=== PATIENT | male | born 1985 | race Caucasian/White ===

== ENCOUNTER 2016-09-22 22:10 | Emergency (ER) | payer OTHER ==
--- NOTE | 2016-09-23 01:27 | ED NURSING NOTES ---
Clinical Report - Nurses [facility] [address] [place] [address] 09/22/2016 22:11 Patient: GLYNN PAGAN TRIAGE Triage time 22:30 Sep 22 2016. Acuity: LEVEL 3. Chief Complaint: (Pain in right flank radiates to abd, when breathes hurts to head). 22:35 09/22/16. SEPSIS SCREEN: Sepsis Screen. Negative (no infection suspected/documented). VALENTÍN COMA SCORE: Valentín Coma Scale: 15- eyes open spontaneously (4); best verbal response- oriented x 4 (5); best motor response- obeys commands (6). --22:35 Tomasa Mondragon R.N. 22:30 09/22/16. BP: 125/71 (regular adult cuff) taken on the left arm, while sitting. HR: 113. RR: 18. O2 saturation: 97% on room air. Temp: 99.1 F (oral). Pain level now: 7/10. --22:35 Tomasa Mondragon R.N. Weight: 83.9 kg stated. Height/Length: 70 inches Per Patient. BMI: 26.5. --22:35 Tomasa Mondragon R.N. Medications None. --22:31 Tomasa Mondragon R.N. Allergies Penicillin. --22:31 Tomasa Mondragon R.N. History Arrived by private vehicle. Historian: patient. Onset. (2 days ago). ( Patient has cough, productive green phlegm, started two days ago). Treatment PERCHER: (Aleve over 12 hours ago). SOCIAL HX: Current every day heavy tobacco smoker- 1 pack per day. History of heavy drug use: heroin, methamphetamines. Recently used drugs just prior to arrival. No alcohol use. ABUSE ASSESSMENT: No report of abuse. --22:35 Tomasa Mondragon R.N. PROBLEMS: no known problems. ADDITIONAL SURGERIES: no known surgeries. Interventions ID band on patient. To treatment room. --22:35 Tomasa Mondragon R.N. PHYSICAL ASSESSMENT Ambulatory to room. GENERAL / NEURO / PSYCH: Alert. Oriented X 4. Appears in no acute distress. HEENT: Mucous membranes are pink. RESPIRATORY: Respirations not labored. Breath sounds within normal limits. CVS: Normal heart rate and rhythm. Capillary refill less than 2 seconds. GI / : Abdomen soft and nontender. Bowel sounds within normal limits. Normal genitalia. No genital lesions noted. SKIN: Skin is warm. --22:35 Tomasa Mondragon R.N. NURSING PROGRESS NOTES 22:35 09/22/16. The plan of care for this patient has been created. Monitoring of patient in place. Head of bed elevated. Reassurance given. Two patient identifiers checked. Call light placed in reach. Side rails up x 1. Bed placed in lowest position. Brakes of bed on. Patient ready for evaluation- chart flagged and ED physician notified. --22:35 Tomasa Mondragon R.N. ( warm blanket given). --22:36 Tomasa Mondragon R.N. ( Warm blanket placed on right flank for comfort and pain relief). --22:39 Tomasa Mondragon R.N. 22:49 09/22/16. ( Patient given water at request of Dr José for UA). --22:49 Tomasa Mondragon R.N. 23:59 09/22/16. ( Rounded on patient, he is doing fine, resting quietly.). --23:59 Tomasa Mondragon R.N. 01:00 09/23/16. BP: 110/57 (regular adult cuff) taken on the left arm. HR: 103. RR: 16. O2 saturation: 95% on room air. Pain level now: 0/10. --01:01 Tomasa Mondragon R.N. ( Patient resting quietly, easily aroused, requested water, this was given, vitals WNL). --01:01 Tomasa Mondragon R.N. 01:18 09/23/2016 Azithromycin PO Tablets 500 mg given. Allergies verified and confirmed 5 rights. --01:18 Tomasa Mondragon R.N. DISPOSITION / DISCHARGE 01:39 09/23/16. Departure time: 01:35 Sep 23 2016. Condition at departure: unchanged. No learning barriers present. Discharge instructions provided and reviewed with the patient. Reviewed medication(s) side effects, precautions, dosing and course information. Prescription(s) given to the patient. Patient verbalized understanding. Written instructions provided in Greenlandic. The patient was discharged by the physician. He was discharged home. He left the Emergency Department ambulatory and via private vehicle. Patient driving. --01:40 Tomasa Mondragon R.N. 01:38 09/23/16. BP: 112/60 (regular adult cuff) taken on the left arm, while sitting. HR: 92. RR: 16 (regular). O2 saturation: 100% on room air. Temp: 98.8 F (oral). Pain level now: 11/30. --01:40 Tomasa Mondragon R.N. Locked/Released at 09/23/2016 1:40 by Tomasa Mondragon R.N.
--- NOTE | 2016-09-23 01:27 | ED ORDER SUMMARY ---
..... Patient: GLYNN PAGAN OrderSheet [facility] VisitID: [id number] [place] [address] 31y, M Registration Date/Time: 09/22/2016 ORDER SHEET Weight: 83.9 kg (stated) Allergies: Penicillin GENERAL ORDERS: UA-Culture if indicated Urgent (22:46 09/22/2016 Regino Valerio) (Ack 22:52 JSanders R.N.) (23:20 JSanders R.N.) Chest 1V Urgent (23:36 09/22/2016 Regino Valerio) (Ack 23:38 AMcQuoid ER Tech1) (23:54 Brea) MEDICATION ORDERS: Azithromycin PO 500 mg (NOW) (01:15 09/23/2016 Regino Valerio) (Ack 1:16 JSanders R.N.) (1:18 JSanders R.N.) IV FLUIDS: ORDER SHEET NOTES: [Electronically signed by Tomasa Mondragon R.N. (01:40 09/23/2016)] [Electronically signed by Alphonso José Dr. (20:55 09/23/2016)] [Electronically locked/signed by Tomasa Mondragon R.N. (:40 09/23/2016)]
--- NOTE | 2016-09-23 01:27 | ED CLINICAL REPORT ---
Clinical Report - Physicians/Mid Levels [facility] [address] [place] [address] 09/22/2016 22:11 Patient: GLYNN PAGAN Time Seen: 22:46; initial patient contact. Arrived- By private vehicle. Historian- patient. HISTORY OF PRESENT ILLNESS Chief Complaint: ABDOMINAL PAIN. It is described as sharp. No radiation. It is described as located in the right flank, the right chest, the right abdomen and the left chest. At its maximum, severity described as moderate. When seen in the E.D., severity described as moderate. Modifying factors- worsened by cough. Not relieved by anything. This started today. No nausea, loss of appetite, vomiting or diarrhea. Similar symptoms previously: None. Recent medical care: Not recently seen/assessed. REVIEW OF SYSTEMS No constipation, difficulty with urination, pain with urination, fever or difficulty breathing. No chills. He has had chest pain and a cough. All systems otherwise negative, except as recorded above. PAST HISTORY Substance abuse. Problems: no known problems. Surgeries: No history of previous surgery. Additional Surgeries: no known surgeries. Medications: None. Allergies: Penicillin. SOCIAL HISTORY Current every day smoker. History of drug use: heroin, methamphetamines. Recently used drugs just prior to arrival. Under influence in ED. ADDITIONAL NOTES The nursing notes have been reviewed. PHYSICAL EXAM Vital Signs: 09/22/2016 22:30 BP: 125/71. HR: 113. RR: 18. O2 saturation: 97%. Temp: 99.1 F. Pain level now: 7/10. Have been reviewed. Blood pressure normal. Tachycardic. Respiratory rate normal. Temperature normal. Oxygen saturation normal. Appearance: Alert. Oriented X3. No acute distress. Eyes: Eyes normal inspection. ENT: Dry mucous membranes present. CVS: Tachycardia. Heart sounds normal. Rhythm normal. Respiratory: No respiratory distress. Breath sounds normal. Abdomen: Soft. Mild tenderness diffusely. No guarding, rebound tenderness or Wilder's sign present. Bowel sounds normal. Back: Normal inspection. No CVA tenderness. Skin: Skin warm and dry. Normal skin color. No rash. Extremities: No lower extremity edema. Neuro: Oriented X 3. LABS, X-RAYS, AND EKG Chest X-ray: No infiltrate. (Peribronchial cuffing). Views: AP. Technique: good. The X-rays were independently viewed by me and interpreted contemporaneously by me. Prior films were not available for comparison. Laboratory Tests: UA-Culture if indicated: (ELEUTERIO: 09/22/2016 23:10) ( MsgRcvd 09/22/2016 23:35) Final results Test Result Flag Units (Reference) URINE COLOR YELLOW URINE APPEARANCE SL CLOUDY URINE GLUCOSE NEGATIVE (NEGATIVE) URINE BILIRUBIN NEGATIVE (NEGATIVE) URINE KETONE NEGATIVE (NEGATIVE) URINE SPECIFIC GRAVITY 1.020 (1.010-1.030) URINE PH 8.5 H (5.0-8.0) URINE PROTEIN NEGATIVE (NEGATIVE) URINE UROBILINOGEN 0.2 EU/dL (0.2-1.0) URINE NITRITE NEGATIVE (NEGATIVE) URINE BLOOD NEGATIVE (NEGATIVE) URINE LEUK ESTERASE NEGATIVE (NEGATIVE) URINE RBC RARE rbc/hpf (0-1) URINE WBC NONE SEEN wbc/hpf (0-1) URINE EPITHELIAL CELLS NONE SEEN EPI/hpf (0-5) URINE BACTERIA NONE SEEN (NONE SEEN) URINE COMMENT CULT NOT INDICATED 1+ AMORPHOUS PHOSURINE CULTURES ARE SET-UP BASED ON THE FOLLOWING CRITERIA:POSITIVE NITRITEPOSITIVE LEUKOCYTE ESTERASEGREATER THAN 10 WHITE BLOOD CELLSMODERATE (2+) OR GREATER BACTERIA . PROGRESS AND PROCEDURES Disposition: Discharged home in good and improved condition. Condition: good. CLINICAL IMPRESSION Acute bacterial bronchitis. INSTRUCTIONS Do not smoke. Seek medical help to quit smoking. Your Current Medications: CONTINUE TAKING THE FOLLOWING MEDICATIONS: None*. Prescription Medications: Zithromax 250 mg tablets: take 1 orally every day for 4 days. Total course 4 days. No refills. Substitution is permissible. (Loading dose given in the ED) Follow-up: Follow up with your doctor in about three days. Call for an appointment. Screening today revealed the patient's blood pressure to be in the normal range. (Electronically signed by Alphonso José Dr. 09/23/2016 20:55)
--- NOTE | 2016-09-23 01:27 | ED NURSING NOTES ---
Clinical Report - Nurses [facility] [address] [place] [address] 09/22/2016 22:11 Patient: GLYNN PAGAN TRIAGE Triage time 22:30 Sep 22 2016. Acuity: LEVEL 3. Chief Complaint: (Pain in right flank radiates to abd, when breathes hurts to head). 22:35 09/22/16. SEPSIS SCREEN: Sepsis Screen. Negative (no infection suspected/documented). VALENTÍN COMA SCORE: Valentín Coma Scale: 15- eyes open spontaneously (4); best verbal response- oriented x 4 (5); best motor response- obeys commands (6). --22:35 Tomasa Mondragon R.N. 22:30 09/22/16. BP: 125/71 (regular adult cuff) taken on the left arm, while sitting. HR: 113. RR: 18. O2 saturation: 97% on room air. Temp: 99.1 F (oral). Pain level now: 7/10. --22:35 Tomasa Mondragon R.N. Weight: 83.9 kg stated. Height/Length: 70 inches Per Patient. BMI: 26.5. --22:35 Tomasa Mondragon R.N. Medications None. --22:31 Tomasa Mondragon R.N. Allergies Penicillin. --22:31 Tomasa Mondragon R.N. History Arrived by private vehicle. Historian: patient. Onset. (2 days ago). ( Patient has cough, productive green phlegm, started two days ago). Treatment DIRECTOR OF RECRUITING: (Aleve over 12 hours ago). SOCIAL HX: Current every day heavy tobacco smoker- 1 pack per day. History of heavy drug use: heroin, methamphetamines. Recently used drugs just prior to arrival. No alcohol use. ABUSE ASSESSMENT: No report of abuse. --22:35 Tomasa Mondragon R.N. PROBLEMS: no known problems. ADDITIONAL SURGERIES: no known surgeries. Interventions ID band on patient. To treatment room. --22:35 Tomasa Mondragon R.N. PHYSICAL ASSESSMENT Ambulatory to room. GENERAL / NEURO / PSYCH: Alert. Oriented X 4. Appears in no acute distress. HEENT: Mucous membranes are pink. RESPIRATORY: Respirations not labored. Breath sounds within normal limits. CVS: Normal heart rate and rhythm. Capillary refill less than 2 seconds. GI / : Abdomen soft and nontender. Bowel sounds within normal limits. Normal genitalia. No genital lesions noted. SKIN: Skin is warm. --22:35 Tomasa Mondragon R.N. NURSING PROGRESS NOTES 22:35 09/22/16. The plan of care for this patient has been created. Monitoring of patient in place. Head of bed elevated. Reassurance given. Two patient identifiers checked. Call light placed in reach. Side rails up x 1. Bed placed in lowest position. Brakes of bed on. Patient ready for evaluation- chart flagged and ED physician notified. --22:35 Tomasa Mondragon R.N. ( warm blanket given). --22:36 Tomasa Mondragon R.N. ( Warm blanket placed on right flank for comfort and pain relief). --22:39 Tomasa Mondragon R.N. 22:49 09/22/16. ( Patient given water at request of Dr José for UA). --22:49 Tomasa Mondragon R.N. 23:59 09/22/16. ( Rounded on patient, he is doing fine, resting quietly.). --23:59 Tomasa Mondragon R.N. 01:00 09/23/16. BP: 110/57 (regular adult cuff) taken on the left arm. HR: 103. RR: 16. O2 saturation: 95% on room air. Pain level now: 0/10. --01:01 Tomasa Mondragon R.N. ( Patient resting quietly, easily aroused, requested water, this was given, vitals WNL). --01:01 Tomasa Mondragon R.N. 01:18 09/23/2016 Azithromycin PO Tablets 500 mg given. Allergies verified and confirmed 5 rights. --01:18 Tomasa Mondragon R.N. DISPOSITION / DISCHARGE 01:39 09/23/16. Departure time: 01:35 Sep 23 2016. Condition at departure: unchanged. No learning barriers present. Discharge instructions provided and reviewed with the patient. Reviewed medication(s) side effects, precautions, dosing and course information. Prescription(s) given to the patient. Patient verbalized understanding. Written instructions provided in Amharic. The patient was discharged by the physician. He was discharged home. He left the Emergency Department ambulatory and via private vehicle. Patient driving. --01:40 Tomasa Mondragon R.N. 01:38 09/23/16. BP: 112/60 (regular adult cuff) taken on the left arm, while sitting. HR: 92. RR: 16 (regular). O2 saturation: 100% on room air. Temp: 98.8 F (oral). Pain level now: 11/30. --01:40 Tomasa Mondragon R.N. Locked/Released at 09/23/2016 1:40 by Tomasa Mondragon R.N.
--- NOTE | 2016-09-23 01:27 | ED ORDER SUMMARY ---
..... Patient: GLYNN PAGAN OrderSheet [facility] VisitID: [id number] [place] [address] 31y, M Registration Date/Time: 09/22/2016 ORDER SHEET Weight: 83.9 kg (stated) Allergies: Penicillin GENERAL ORDERS: UA-Culture if indicated Urgent (22:46 09/22/2016 Regino Valerio) (Ack 22:52 JSanders R.N.) (23:20 JSanders R.N.) Chest 1V Urgent (23:36 09/22/2016 Regino Valerio) (Ack 23:38 AMcQuoid ER Tech1) (23:54 Brea) MEDICATION ORDERS: Azithromycin PO 500 mg (NOW) (01:15 09/23/2016 Regino Valerio) (Ack 1:16 JSanders R.N.) (1:18 JSanders R.N.) IV FLUIDS: ORDER SHEET NOTES: [Electronically signed by Tomasa Mondragon R.N. (01:40 09/23/2016)] [Electronically signed by Alphonso José Dr. (20:55 09/23/2016)] [Electronically locked/signed by Tomasa Mondragon R.N. (:40 09/23/2016)]
--- NOTE | 2016-09-23 07:49 | DIAGNOSTIC IMAGING REPORT ---
PROCEDURE: XR CHEST 1 VIEW INDICATION: SHORTNESS OF BREATH TECHNIQUE: Portable AP view 11:55 p.m. COMPARISON: None. FINDINGS: Increased lung markings in the right lung base medially which may represent small infiltrate versus normal vasculature. Heart and mediastinum are normal. Thorax is normal. IMPRESSION: 1. Small right basilar infiltrate versus normal vasculature. Recommend two-view chest x-ray
--- NOTE | 2016-09-23 20:55 | ED MAR SUMMARY ---
..... Medication Administration Record [facility] [address] [address] Patient: GLYNN PAGAN Visit ID: [id number] 31y, M Weight: 83.9 kg Height/Length: 70 in BMI: 26.5 ALLERGIES: Penicillin Given 01:18 09/23/2016 Tomasa Mondragon R.N. Medication Administered: AZITHROMYCIN [PO], Dose: 500 mg Tablets PO. Medication Ordered: Azithromycin PO 500 mg (NOW).
--- NOTE | 2016-09-23 20:55 | ED MED RECONCILIATION SUMMARY ---
Patient: GLYNN PAGAN Medication Reconciliation Report [facility] VisitID: [id number] [address] [place] [address] 31y, M Registration Date/Time: 09/22/2016 Weight: 83.9 kg Height/Length: 70 in. BMI: 26.5 ALLERGIES: Penicillin The patient's Home Medications are listed below: NONE. The source(s) of the original Home Medication information: Not obtained. The following Medications were given to the patient in the Emergency Department: Azithromycin [PO] PO 500 mg, administered: 09/23/2016 1:18:00 AM The following Medications were prescribed to the patient: Zithromax 250 mg tablets: take 1 orally every day for 4 days. Total course 4 days. No refills. Substitution is permissible.(Loading dose given in the ED) -- Alphonso José Dr.
--- NOTE | 2016-09-23 20:55 | ED MAR SUMMARY ---
..... Medication Administration Record [facility] [address] [place] [address] Patient: GLYNN PAGAN Visit ID: [id number] 31y, M Weight: 83.9 kg Height/Length: 70 in BMI: 26.5 ALLERGIES: Penicillin Given 01:18 09/23/2016 Tomasa Mondragon R.N. Medication Administered: AZITHROMYCIN [PO], Dose: 500 mg Tablets PO. Medication Ordered: Azithromycin PO 500 mg (NOW).
--- NOTE | 2016-09-23 20:55 | ED DISCHARGE INSTRUCTIONS ---
Patient: GLYNN PAGAN General Instructions [facility] VisitID: [id number] [place] [address] 31y, M Registration Date/Time: 09/22/2016 Acute bacterial bronchitis. INSTRUCTIONS Do not smoke. Seek medical help to quit smoking. Your Current Medications: CONTINUE TAKING THE FOLLOWING MEDICATIONS: None*. Prescription Medications: Zithromax 250 mg tablets: take 1 orally every day for 4 days. Total course 4 days. No refills. Substitution is permissible. (Loading dose given in the ED) Follow-up: Follow up with your doctor in about three days. Call for an appointment. Screening today revealed the patient's blood pressure to be in the normal range. ADDITIONAL INFORMATION Bronchitis (Adult: Abx Tx) BRONCHITIS is an infection of the air passages (bronchial tubes). It often occurs during the common cold. Symptoms include cough with mucus (phlegm) and low-grade fever. Bronchitis usually lasts 7-14 days. Mild cases can be treated with simple home remedies. More severe infection is treated with an antibiotic. Home Care: If symptoms are severe, rest at home for the first 2-3 days. When you resume activity, don't let yourself get too tired. Do not smoke. Avoid being exposed to the smoke of others. You may use acetaminophen (Tylenol) or ibuprofen (Motrin, Advil) to control fever or pain, unless another medicine was prescribed for this. [NOTE: If you have chronic liver or kidney disease or ever had a stomach ulcer or GI bleeding, talk with your doctor before using these medicines.] Your appetite may be poor, so a light diet is fine. Avoid dehydration by drinking 6-8 glasses of fluids per day (water, soft, drinks, juices, tea, soup, etc.). Extra fluids will help loosen secretions in the lungs. Ramr-bkr-tdvsjvu cough medicines that containdextromethorphan(such as Robitussin DM) and decongestants (Actifed or Sudafed) may help relieve cough and congestion. [NOTE: Do not use decongestants if you have high blood pressure.] Finish all antibiotic medicine, even if you are feeling better after only a few days. Follow Up with your doctor or as directed if you dont start to feel better after three days. [NOTE: If you are age 65 or older, or if you have chronic asthma or COPD, we recommend a PNEUMOCOCCAL VACCINATION every five years and a yearly INFLUENZAVACCINATION (FLU-SHOT) every . Ask your doctor about this. If you had an X-ray, a radiologist will review it. You will be notified of any new findings that may affect your care.] Get Prompt Medical Attention if any of the following occur: Fever over 100.4F (38.0C) for more than three days Trouble breathing, wheezing or pain with breathing Coughing up blood or increased amounts of colored sputum Weakness, drowsiness, headache, facial pain, ear pain or a stiff neck How To Quit Smoking Smoking is one of the hardest habits to break. About half of all those who have ever smoked have been able to quit, and most of those (about 70%) who still smoke want to quit. Here are some of the best ways to stop smoking. Keep Trying: It takes most smokers about 8 tries before they are finally able to fully quit. So, the more often you try and fail, the better your chance of quitting the next time! So, don't give up! Go Cold Blair: Most ex-smokers quit cold turkey. Trying to cut back gradually doesn't seem to work as well, perhaps because it continues the smoking habit. Also, it is possible to fool yourself by inhaling more while smoking fewer cigarettes. This results in the same amount of nicotine in your body! Get Support: Support programs can make an important difference, especially for the heavy smoker. These groups offer lectures, methods to change your behavior and peer support. Call the free national Quitline for more information. 486-VOXS-LUB (580-004-2401). Low-cost or free programs are offered by many hospitals, local chapters of the [employer] (838-032-6310) and the [employer] (643-986-3284). Support at home is important too. Non-smokers can help by offering praise and encouragement. If the smoker fails to quit, encourage them to try again! Lgno-Cug-Kibwdss Medicines: For those who can't quit on their own, Nicotine Replacement Therapy (NRT) may make quitting much easier. Certain aids such as the nicotine patch, gum and lozenge are available without a prescription. However, it is best to use these under the guidance of your doctor. The skin patch provides a steady supply of nicotine to the body. Nicotine gum and lozenge gives temporary bursts of low levels of nicotine. Both methods take the edge off the craving for cigarettes. WARNING: If you feel symptoms of nicotine overdose, such as nausea, vomiting, dizziness, weakness, or fast heartbeat, stop using these and see your doctor. Prescription Medicines: After evaluating your smoking patterns and prior attempts at quitting, your doctor may offer a prescription medicine such as bupropion (Zyban, Wellbutrin), varenicline (Chantix, Champix), a niocotine inhaler or nasal spray. Each has its unique advantage and side effects which your doctor can review with you. Health Benefits Of Quitting: The benefits of quitting start right away and keep improving the longer you go without smokin minutes: blood pressure and pulse return to normal 8 hours: oxygen levels return to normal 2 days: ability to smell and taste begins to improve as damaged nerves start to regrow 2-3 weeks: circulation and lung function improves 1-9 months: decreased cough, congestion and shortness of breath; less tired 1 year: risk of heart attack decreases by half 5 years: risk of lung cancer decreases by half; risk of stroke becomes the same as a non-smoker For information about how to quit smoking, visit the following links: [employer] , Clearing the Air, Quit Smoking Today - an online booklet. http://www.smokefree.gov/pubs/clearing_the_air.pdf Smokefree.gov http://smokefree.gov/ QuitNet http://www.quitnet.com/ You have been given the following additional information: Bronchitis, Antiobiotic Treatment (Adult) Smoking Cessation (Electronically signed by Alphonso José Dr. 09/23/2016 20:55)
--- NOTE | 2016-09-23 20:55 | ED MED RECONCILIATION SUMMARY ---
Patient: GLYNN PAGAN Medication Reconciliation Report [facility] VisitID: [id number] [address] [place] [address] 31y, M Registration Date/Time: 09/22/2016 Weight: 83.9 kg Height/Length: 70 in. BMI: 26.5 ALLERGIES: Penicillin The patient's Home Medications are listed below: NONE. The source(s) of the original Home Medication information: Not obtained. The following Medications were given to the patient in the Emergency Department: Azithromycin [PO] PO 500 mg, administered: 09/23/2016 1:18:00 AM The following Medications were prescribed to the patient: Zithromax 250 mg tablets: take 1 orally every day for 4 days. Total course 4 days. No refills. Substitution is permissible.(Loading dose given in the ED) -- Alphonso José Dr.
--- NOTE | 2016-09-23 20:55 | ED DISCHARGE INSTRUCTIONS ---
Patient: GLYNN PAGAN General Instructions [facility] VisitID: [id number] [place] [address] 31y, M Registration Date/Time: 09/22/2016 Acute bacterial bronchitis. INSTRUCTIONS Do not smoke. Seek medical help to quit smoking. Your Current Medications: CONTINUE TAKING THE FOLLOWING MEDICATIONS: None*. Prescription Medications: Zithromax 250 mg tablets: take 1 orally every day for 4 days. Total course 4 days. No refills. Substitution is permissible. (Loading dose given in the ED) Follow-up: Follow up with your doctor in about three days. Call for an appointment. Screening today revealed the patient's blood pressure to be in the normal range. ADDITIONAL INFORMATION Bronchitis (Adult: Abx Tx) BRONCHITIS is an infection of the air passages (bronchial tubes). It often occurs during the common cold. Symptoms include cough with mucus (phlegm) and low-grade fever. Bronchitis usually lasts 7-14 days. Mild cases can be treated with simple home remedies. More severe infection is treated with an antibiotic. Home Care: If symptoms are severe, rest at home for the first 2-3 days. When you resume activity, don't let yourself get too tired. Do not smoke. Avoid being exposed to the smoke of others. You may use acetaminophen (Tylenol) or ibuprofen (Motrin, Advil) to control fever or pain, unless another medicine was prescribed for this. [NOTE: If you have chronic liver or kidney disease or ever had a stomach ulcer or GI bleeding, talk with your doctor before using these medicines.] Your appetite may be poor, so a light diet is fine. Avoid dehydration by drinking 6-8 glasses of fluids per day (water, soft, drinks, juices, tea, soup, etc.). Extra fluids will help loosen secretions in the lungs. Njjc-jhm-yhqpvom cough medicines that containdextromethorphan(such as Robitussin DM) and decongestants (Actifed or Sudafed) may help relieve cough and congestion. [NOTE: Do not use decongestants if you have high blood pressure.] Finish all antibiotic medicine, even if you are feeling better after only a few days. Follow Up with your doctor or as directed if you dont start to feel better after three days. [NOTE: If you are age 65 or older, or if you have chronic asthma or COPD, we recommend a PNEUMOCOCCAL VACCINATION every five years and a yearly INFLUENZAVACCINATION (FLU-SHOT) every . Ask your doctor about this. If you had an X-ray, a radiologist will review it. You will be notified of any new findings that may affect your care.] Get Prompt Medical Attention if any of the following occur: Fever over 100.4F (38.0C) for more than three days Trouble breathing, wheezing or pain with breathing Coughing up blood or increased amounts of colored sputum Weakness, drowsiness, headache, facial pain, ear pain or a stiff neck How To Quit Smoking Smoking is one of the hardest habits to break. About half of all those who have ever smoked have been able to quit, and most of those (about 70%) who still smoke want to quit. Here are some of the best ways to stop smoking. Keep Trying: It takes most smokers about 8 tries before they are finally able to fully quit. So, the more often you try and fail, the better your chance of quitting the next time! So, don't give up! Go Cold [place]: Most ex-smokers quit cold turkey. Trying to cut back gradually doesn't seem to work as well, perhaps because it continues the smoking habit. Also, it is possible to fool yourself by inhaling more while smoking fewer cigarettes. This results in the same amount of nicotine in your body! Get Support: Support programs can make an important difference, especially for the heavy smoker. These groups offer lectures, methods to change your behavior and peer support. Call the free national Quitline for more information. 850-ZWBY-OEW (068-128-5211). Low-cost or free programs are offered by many hospitals, local chapters of the [employer] (364-828-2948) and the [employer] (883-391-5294). Support at home is important too. Non-smokers can help by offering praise and encouragement. If the smoker fails to quit, encourage them to try again! Iaap-Sqx-Opjxfhu Medicines: For those who can't quit on their own, Nicotine Replacement Therapy (NRT) may make quitting much easier. Certain aids such as the nicotine patch, gum and lozenge are available without a prescription. However, it is best to use these under the guidance of your doctor. The skin patch provides a steady supply of nicotine to the body. Nicotine gum and lozenge gives temporary bursts of low levels of nicotine. Both methods take the edge off the craving for cigarettes. WARNING: If you feel symptoms of nicotine overdose, such as nausea, vomiting, dizziness, weakness, or fast heartbeat, stop using these and see your doctor. Prescription Medicines: After evaluating your smoking patterns and prior attempts at quitting, your doctor may offer a prescription medicine such as bupropion (Zyban, Wellbutrin), varenicline (Chantix, Champix), a niocotine inhaler or nasal spray. Each has its unique advantage and side effects which your doctor can review with you. Health Benefits Of Quitting: The benefits of quitting start right away and keep improving the longer you go without smokin minutes: blood pressure and pulse return to normal 8 hours: oxygen levels return to normal 2 days: ability to smell and taste begins to improve as damaged nerves start to regrow 2-3 weeks: circulation and lung function improves 1-9 months: decreased cough, congestion and shortness of breath; less tired 1 year: risk of heart attack decreases by half 5 years: risk of lung cancer decreases by half; risk of stroke becomes the same as a non-smoker For information about how to quit smoking, visit the following links: [employer] [place] , Clearing the Air, Quit Smoking Today - an online booklet. http://www.smokefree.gov/pubs/clearing_the_air.pdf Smokefree.gov http://smokefree.gov/ QuitNet http://www.quitnet.com/ You have been given the following additional information: Bronchitis, Antiobiotic Treatment (Adult) Smoking Cessation (Electronically signed by Alphonso José Dr. 09/23/2016 20:55)
== END 2016-09-23 01:35 | disposition home or self-care (01) ==
LOC: ED SRH 22:10
DX: J20.8 Acute bronchitis due to other specified organisms (principal); F17.210 Nicotine dependence, cigarettes, uncomplicated; F19.10 Other psychoactive substance abuse, uncomplicated; Z88.0 Allergy status to penicillin
CPT/HCPCS: 90004